=== PATIENT | male | born 1970 | race Caucasian/White ===

== ENCOUNTER → 2022-04-16 | Outpatient (CLI) | payer OTHER ==
[2022-04-16 10:58] LABS: BASOPHILS % (AUTO) 0.8 % (0.0-2.0); EOSINOPHILS % (AUTO) 4.1 % (1.0-6.0); HEMATOCRIT 47.8 % (41-53); HEMOGLOBIN 16.5 g/dL (13.5-17.5); LYMPHOCYTES # (AUTO) 2.3 K/uL (1.0-4.8); LYMPHOCYTES % (AUTO) 36.5 % (22.0-44.0); MEAN CORPUSCULAR HEMOGLOBIN 31.8 pg (26.0-34.0); MEAN CORPUSCULAR HGB CONC 34.5 G/dL (31.0-37.0); MEAN CORPUSCULAR VOLUME 92 fL (80-100); MONOCYTES # (AUTO) 0.6 K/uL (0.1-1.0); NEUTROPHILS # (AUTO) 3.2 K/uL (1.8-7.7); NEUTROPHILS % (AUTO) 49.6 % (40.0-70.0); PLATELET COUNT (AUTO) 277 K/uL (150-450); RED BLOOD CELL COUNT(AUTO) 5.19 MIL/uL (4.50-5.90); RED CELL DISTRIBUTION WIDTH 13.8 % (11.5-14.5)
[2022-04-16 11:19] LABS: ALANINE AMINOTRANSFERASE 66 U/L (12-78); ALKALINE PHOSPHATASE 72 U/L (46-116); ANION GAP 6 mmol/L (8-16); ASPARTATE AMINOTRANSFERASE 30 U/L (15-37); BILIRUBIN,TOTAL 0.4 mg/dL (0.1-1.0); CALCIUM, TOTAL 8.8 mg/dL (8.8-10.5); CARBON DIOXIDE 29 mmol/L (22-29); CHLORIDE 104 mmol/L (98-107); CHOL/HDL RATIO 8.4 (4.2-7.3); CHOLESTEROL 235 mg/dL (131-200); GLOMERULAR FILTR. RATE CALC > 60 mL/min (>60); GLUCOSE,RANDOM 127 mg/dL (70-110); HDL CHOLESTEROL 28 mg/dL (40-60); LDL CHOL (CALC.) 171 mg/dL (0-130); POTASSIUM 3.8 mmol/L (3.5-5.1); SODIUM SERUM 139 mmol/L (136-145); THYROID STIMULATING HORMONE 2.57 uIU/mL (0.36-3.74); TOTAL PROTEIN, SERUM 7.7 g/dL (6.4-8.2); TRIGLYCERIDES 179 mg/dL (15-150); UREA NITROGEN, BLOOD 11 mg/dL (7-18)
== END | disposition home or self-care (01) ==
LOC: LABMN 10:42
DX: F33.3 Major depressive disorder, recurrent, severe with psychotic symptoms (principal)
CPT/HCPCS: 80053; 80061; 84443; 85025